=== PATIENT | female | born 1960 | race Caucasian/White ===

== ENCOUNTER 2017-11-28 14:28 | Emergency (ER) | payer BC, OTHER, SELFPAY ==
[2017-11-28 14:33] VITALS: BP 126/77; PULSE 78; RESP 14; TEMP 36.9; O2SAT 100; BMI 27.9
--- NOTE | 2017-11-28 14:38 | DI.RAD.S_ITS ---
PROCEDURE: XR CHEST 2V INDICATIONS: chest pain, shortness of breath, now resolved TECHNIQUE: 2 views of the chest were acquired. COMPARISON: [facility], , CHEST 1 VIEW, 11/03/2011, 16:06. FINDINGS: Surgical changes and devices: None. Lungs and pleura: No pleural effusions or pneumothorax. Lungs are clear. Mediastinum: Mediastinal contours are normal. Heart size is normal. Bones and chest wall: No suspicious bony abnormalities. Soft tissues appear unremarkable. IMPRESSION: No acute cardiopulmonary pathology. Dictated by: Zhen Sanches M.D. on 11/28/2017 at 15:36 Approved by: Zhen Sanches M.D. on 11/28/2017 at 15:36
[2017-11-28] MEDS: ASPIRIN EC 81 MG TABLET 324 MG PO (14:41)
[2017-11-28 14:57] LABS: Hematocrit 41.4 % (36-46); Hemoglobin 14.4 g/dL (12.0-16.0); Mean Corpuscular HGB Conc 34.7 % (30-36); Mean Corpuscular Hemoglobin 30.4 PG (26-34); Mean Corpuscular Volume 87.8 fL (80-100); Platelet Count 311 X10^3/uL (150-400); Red Blood Cell Count 4.72 X10^6/uL (4.0-5.2); Red Cell Distribution Width 12.8 % (11.6-14.8); White Blood Cell Count 7.7 X10^3/uL (4.5-11.0)
[2017-11-28 14:58] LABS: Neutrophils Absolute Manual 4774 /uL (3000-5900); Total Cells Counted 100
[2017-11-28 14:59] LABS: RBC Morphology Normal Morphology
[2017-11-28 15:03] LABS: INR 1.1 (0.9-1.3); Prothrombin Time 11.4 SECONDS (10.1-12.7)
[2017-11-28 15:07] LABS: Alanine Aminotransferase 26 IU/L (9-52); Albumin 4.3 g/dL (3.5-5.0); Albumin Globulin Ratio 1.4 (1.0-2.8); Alkaline Phosphatase 68 U/L (38-126); Aspartate Aminotransferase 22 IU/L (14-36); BUN Creatinine Ratio 17.8 (6-22); Bilirubin Total 0.6 mg/dL (0.2-1.3); Blood Urea Nitrogen 16 mg/dL (7-17); Calcium 9.5 mg/dL (8.4-10.2); Carbon Dioxide 27 mmol/L (22-32); Chloride 104 mmol/L (98-107); Creatine Kinase 98 U/L (30-135); Estimated Glomerular Filt Rate > 60.0 mL/min (>60); Globulin 3.1 g/dL (1.7-4.1); Glucose 95 mg/dL (70-100); HEMOLYSIS < 15 (0-50); Potassium 4.4 mmol/L (3.4-5.1); Sodium 141 mmol/L (137-145); Total Protein 7.4 g/dL (6.3-8.2)
[2017-11-28 15:25] LABS: Troponin I < 0.012 ng/mL (0.01-0.034)
--- NOTE | 2017-11-28 19:08 | ED.CHESTPAIN ---
HPI - Chest Pain General Chief Complaint: Chest Pain Stated Complaint: MIGHT HAVE HEART ISSUES Time Seen by Provider: 11/28/17 17:12 Source: patient and family Mode of arrival: ambulatory Limitations: no limitations History of Present Illness HPI narrative: 57-year-old female, nonsmoker presents to the emergency department with family in the chief complaint of chest pressure off and on for many months without any typical provocation, palliation or radiation. Patient denies any cough or shortness of breath nor fever or chills. Patient additionally noted which she describes as similar to floaters this morning at about 3 or 4 but no other neurologic symptoms such as focal weakness or ataxia nor speech troubles. Her symptoms were gone long before she presented to the emergency department MD complaint: chest pain Onset (ago): month(s) Duration: intermittent Pain location: substernal Severity: moderate Quality: heaviness Pain radiation: LUE Relieving factors: nothing Exacerbating factors: nothing Treatments prior to arrival chest pain: none Related Data Home Medications Medication Instructions Recorded Confirmed No Known Home Medications 11/28/17 11/28/17 Allergies Allergy/AdvReac Type Severity Reaction Status Date / Time codeine Allergy Unknown Verified 11/28/17 14:37 morphine Allergy Unknown Verified 11/28/17 14:37 Penicillins Allergy Unknown Verified 11/28/17 14:37 Review of Systems Review of Systems All systems reviewed & are unremarkable except as noted in HPI and below Constitutional Denies chills, Denies fever(s), Denies lethargy and Denies weakness Eyes Reports change in vision, Denies eye discharge, Denies irritation, Denies loss of vision and Reports spots in vision ENT Ears, Nose, Mouth, and Throat: Denies change in voice, Denies neck pain and Denies sore throat Cardiovascular Reports chest pain, Denies irregular heart rhythm, Denies lightheadedness, Denies palpitations, Denies dyspnea, Denies dyspnea on exertion and Denies orthopnea Respiratory Denies cough, Denies dyspnea, Denies dyspnea on exertion and Denies wheezing Gastrointestinal Gastrointestinal: Denies abdominal pain, Denies change in bowel habits, Denies diarrhea, Denies nausea and Denies vomiting Genitourinary Denies hematuria, Denies flank pain, Denies urinary incontinence and Denies urinary urgency Musculoskeletal Denies neck pain Integumentary/Breasts Denies pruritus, Denies erythema, Denies rash and Denies wounds Neurologic Denies confusion, Denies loss of vision and Denies weakness Psychiatric Denies anxiety, Denies confusion, Denies depression, Denies homicidal ideation and Denies suicidal ideation Endocrine Denies palpitations Hematologic/Lymphatic Denies easy bruising Allergic/Immunologic Denies wheezing [facility] Social History Smoking Status: Never smoker Exam Initial Vital Signs Initial Vital Signs: Vital Signs Temperature 98.5 F 11/28/17 14:33 Pulse Rate 78 11/28/17 14:33 Respiratory Rate 14 11/28/17 14:33 Blood Pressure 126/77 11/28/17 14:33 Pulse Oximetry 100 11/28/17 14:33 Const General: cooperative and well developed Nutritional Appearance: well nourished Orientation: alert, awake, oriented x3 and not confused HENMT Head: normocephalic and atraumatic Ears: external ears normal and TM's normal bilaterally Nose: external nose normal and No nasal discharge Face and sinus: sinuses nontender, face symmetric, no sinus tenderness and No dry mucous membranes Mouth: oral mucosae normal and moist mucous membranes Teeth and gingiva: dentition normal Throat: tonsils normal and uvula midline Eyes General: appearance normal, both eyes and all related structures Eyelids: eyelids normal Conjunctivae: conjunctivae normal Sclera: sclerae normal Pupils: PERRL EOM: EOM intact bilaterally Neck Neck: normal visual inspection, trachea midline, No lymphadenopathy, No midline deformity and No JVD Lymphatic: No lymphedema Chest Chest: normal inspection of the chest Resp Effort & Inspection: normal respiratory effort, able to speak in complete sentences, no respiratory distress and no use of accessory muscles Auscultation: clear to auscultation bilaterally, no rales, no rhonchi and no wheezes Cardio Rate: regular rate Rhythm: regular rhythm Heart Sounds: no click, no gallops, no murmurs and no rubs Pulses: normal peripheral pulses GI Inspection: non-distended Palpation: soft, no hepatosplenomegaly, No guarding, No pulsatile mass and No tender Auscultation: normal bowel sounds Back/Spine/Pelvis Back: No CVA tenderness Cervical Spine: cervical ROM normal and No pain with cervical ROM Thoracic/Lumbar Spine: thoracic and lumbar spine normal to inspection Skin General: no rashes or lesions noted, No jaundice and No petechiae Neuro General: alert, oriented x3, gait normal and no focal motor deficits Speech: speech normal Extrem General: full ROM, no clubbing, cyanosis or edema, no pedal edema and no calf tenderness Psych Appearance: well kempt Mental Status: mental status grossly normal Attitude: cooperative Thought Content: normal and suicidality Judgment: judgment good Scores HEART Score Heart Score history: Slightly Suspicious Heart Score EKG: Normal Heart Score Age: 45-64 years old Heart Score risk factors: No known risk factors Heart Score troponin: < or = to normal limit Heart Score Total: 1 NIH Stroke Scale Level of Conciousness: Alert, keenly responsive Ask month/age: Answers both questions correctly. Open/close eyes, close hand: Performs both tasks correctly Best gaze horizontal: Normal Visual james: No visual loss Facial palsy: Normal symetrical movement Left arm drift: No drift for full 10 sec Right arm drift: No drift for full 10 sec Left leg drift: No drift for full 10 sec Right leg drift: No drift for full 10 sec Limb ataxia: Absent Sensory on face/arms/legs: Normal, no sensory loss Best language: No aphasia, normal Dysarthria: Normal Extinction or inattention: No abnormality Total NIH Stroke scale score: 0 Course Orders Ordered: ED Orders 11/28/17 19:36 CT head/brain wo con Stat Discontinued Medications Aspirin (Aspirin Ec) 324 mg PO NOW ONE Stop: 11/28/17 14:39 Last Admin: 11/28/17 14:41 Dose: 324 mg Vital Signs - 8 hr 11/28/17 20:09 Pulse Rate 67 Respiratory Rate 17 Blood Pressure [Left Arm] 126/91 H Pulse Oximetry 100 MDM - Chest Pain Differential Diagnosis Likely fracture of rib, pneumothorax, stable angina, unstable angina pectoris, atypical chest pain, st elevation myocardial infarction, costochondritis, chest pain and biliary colic Medical Records Data Attestation: I reviewed the patient's medical records. Lab Data Attestation: I reviewed the patient's lab results. Result diagrams: 11/28/17 14:45 11/28/17 14:45 Lab Results 11/28/17 11/28/17 11/28/17 Range/Units 14:45 14:45 14:45 WBC 7.7 (4.5-11.0) X10^3/uL RBC 4.72 (4.0-5.2) X10^6/uL Hgb 14.4 (12.0-16.0) g/dL Hct 41.4 (36-46) % MCV 87.8 (80-100) fL MCH 30.4 (26-34) PG MCHC 34.7 (30-36) % RDW 12.8 (11.6-14.8) % Plt Count 311 (150-400) X10^3/uL Total Counted 100 Seg Neutrophils % 62.0 (38-70) % Lymphocytes % (Manual) 30.0 (25-45) % Monocytes % (Manual) 6.0 (2-11) % Eosinophils % (Manual) 1.0 L (2-4) % Basophils % (Manual) 1.0 (0-1) % Neutrophils # (Manual) 4774 (9076-9705) /uL RBC Morphology Normal morphology PT 11.4 (10.1-12.7) SECONDS INR 1.1 (0.9-1.3) Sodium 141 (137-145) mmol/L Potassium 4.4 (3.4-5.1) mmol/L Chloride 104 (98-107) mmol/L Carbon Dioxide 27 (22-32) mmol/L BUN 16 (7-17) mg/dL Creatinine 0.90 (0.52-1.04) mg/dL Estimated GFR > 60.0 (>60) mL/min BUN/Creatinine Ratio 17.8 (6-22) Glucose 95 (70-100) mg/dL Calcium 9.5 (8.4-10.2) mg/dL Total Bilirubin 0.6 (0.2-1.3) mg/dL AST 22 (14-36) IU/L ALT 26 (9-52) IU/L Alkaline Phosphatase 68 (38-126) U/L Total Creatine Kinase 98 (30-135) U/L Troponin I < 0.012 (0.01-0.034) ng/mL Total Protein 7.4 (6.3-8.2) g/dL Albumin 4.3 (3.5-5.0) g/dL Globulin 3.1 (1.7-4.1) g/dL Albumin/Globulin Ratio 1.4 (1.0-2.8) Imaging Data CT scan - head: Radiologist's impression: [address] [place] [address] CT Scan Report Signed Patient: Nasreen Seymour JMR#: [id number] : 2Acct:[id number] Age/Sex: 57 / FDate of Service: 11/28/17 Loc: ED Accession Number: [id number] Procedure: CT head/brain wo con Ordering Provider: Eliseo Moreira D.O. PROCEDURE: CT HEAD/BRAIN WO CON INDICATIONS: resolved neuro symptoms TECHNIQUE: Noncontrast 4.5 mm thick angled axial sections acquired from the foramen magnum to the vertex, with coronal and sagittal reformats. For radiation dose reduction, the following was used: automated exposure control, adjustment of mA and/or kV according to patient size. COMPARISON: [facility], CT, HEAD WITHOUT CONTRAST, 03/03/2013, 8:54. FINDINGS: Image quality: Excellent. CSF spaces: Basal cisterns are patent. No extra-axial fluid collections. Ventricles are normal in size and shape. Brain: No midline shift. No intracranial masses or hemorrhage. Reynoso-white matter interface is normal. Skull and face: Calvarium and visualized facial bones are intact, without suspicious lesions. Sinuses: Visualized sinuses and mastoids are clear. IMPRESSION: No acute intracranial disease process. Dictated by: Monique Avalos MD, PhD on 11/28/2017 at 20:13 Approved by: Monique Avalos MD, PhD on 11/28/2017 at 20:15 ECG Data Attestation: I personally reviewed and interpreted this ECG as follows: Prior ECG tracings: not available for review Interpretation: EKG is normal sinus rhythm and free of any signs of ischemia or ectopy. Discharge Plan Departure Patient Disposition: Home Clinical Impression: Chest pain Discharge Date/Time: 11/28/17 20:45 Interventions: ED Discharge Assessment Last Done: 11/28/17 20:44 Instructions: DI for Chest Pain Activity Restrictions/Additional Instructions: *You have been diagnosed with [ chest pain ] *What to do: *Take medications as directed: Start taking baby aspirin daily *Follow up with your primary care provider in 2-3 days, call for an appointment. Let them know you were seen in the Emergency Department and that we ask that you be seen in follow up *Return to ER if you should have any new, worsening or concerning symptoms, such as [recurrence of chest pain, shortness of breath, other neurologic symptoms such as numbness, weakness or tingling ] Prescriptions: No Action No Known Home Medications RF: 0 Referrals: Jairo Kraus MD [Primary Care Provider] -
--- NOTE | 2017-11-28 19:36 | DI.CT.S_ITS ---
PROCEDURE: CT HEAD/BRAIN WO CON INDICATIONS: resolved neuro symptoms TECHNIQUE: Noncontrast 4.5 mm thick angled axial sections acquired from the foramen magnum to the vertex, with coronal and sagittal reformats. For radiation dose reduction, the following was used: automated exposure control, adjustment of mA and/or kV according to patient size. COMPARISON: [facility], CT, HEAD WITHOUT CONTRAST, 03/03/2013, 8:54. FINDINGS: Image quality: Excellent. CSF spaces: Basal cisterns are patent. No extra-axial fluid collections. Ventricles are normal in size and shape. Brain: No midline shift. No intracranial masses or hemorrhage. Reynoso-white matter interface is normal. Skull and face: Calvarium and visualized facial bones are intact, without suspicious lesions. Sinuses: Visualized sinuses and mastoids are clear. IMPRESSION: No acute intracranial disease process. Dictated by: Monique Avalos MD, PhD on 11/28/2017 at 20:13 Approved by: Monique Aavlos MD, PhD on 11/28/2017 at 20:15
[2017-11-28 20:09] VITALS: BP 126/91; PULSE 67; RESP 17; O2SAT 100
== END 2017-11-28 20:45 | disposition home or self-care (01) ==
PROVIDERS: Emergency Medicine; Emergency Provider Emergency Medicine; PCP Specialist
DX: R07.89 Other chest pain (principal); H53.9 Unspecified visual disturbance
CPT/HCPCS: 36415; 70450; 71046; 80053; 82550; 82553; 84484; 85025; 85610; 93005; 93010; 99282; 99285

== ENCOUNTER 2020-08-01 10:32 | Emergency (ER) | payer OTHER, SELFPAY ==
[2020-08-01 10:35] VITALS: BP 135/76; PULSE 69; RESP 14; TEMP 37.1; O2SAT 95; BMI 27.4
--- NOTE | 2020-08-01 10:38 | ED.GENADULT ---
HPI - General Adult General Chief complaint: Headache Stated complaint: extreme headaches, hx of concussions Time Seen by Provider: 08/01/20 10:37 Source: patient Mode of arrival: Ambulatory Limitations: no limitations History of Present Illness HPI narrative: Patient is a 59-year-old female. She states that for at least the past year she has had daily headaches on the right side however yesterday morning the headache seems to be somewhat worsened a little bit different than her normal headaches. She does not take any regular medications for these although yesterday she did take some aspirin and yesterday afternoon took some ibuprofen without much relief. She does have some procedure scheduled with her eyes to include cataract surgery. She states that her eye doctor seems to think that maybe this is what is causing her headache although they are not 100% sure this. She has not talk with her primary doctor about them but does have an appointment coming up to discuss the headaches. She denies any fevers. Describes the pain as a throbbing/stabbing sensation to the right side of her head that extends to the back of her neck. No balance issues. She is photophobic. No recent travel. Related Data Home Medications Medication Instructions Recorded Confirmed No Known Home Medications 11/28/17 11/28/17 Allergies Allergy/AdvReac Type Severity Reaction Status Date / Time codeine Allergy Unknown Verified 08/01/20 10:42 morphine Allergy Unknown Verified 08/01/20 10:42 Penicillins Allergy Unknown Verified 08/01/20 10:42 Review of Systems Constitutional Constitutional: Denies chills, Denies fatigue, Denies fever(s) and Reports headache(s) Eyes Eyes: Reports blurry vision and Reports photophobia ENT Ears, Nose, Mouth, and Throat: Denies vertigo, Denies dizziness, Reports headache(s), Denies disequilibrium, Denies sinus pain and Denies sore throat Cardiovascular Cardiovascular: Denies chest pain and Denies dyspnea Respiratory Respiratory: Denies dyspnea Gastrointestinal Gastrointestinal: Denies change in bowel habits, Denies nausea and Denies vomiting Genitourinary Genitourinary: Denies dysuria Genitourinary: Denies dysuria Musculoskeletal Musculoskeletal: Denies arthralgias, Denies myalgias and Denies tingling Integumentary/Breasts Skin/Breast: Denies rash Neurologic Neurologic: Denies behavioral changes, Denies vertigo, Denies dizziness, Reports headache(s), Denies tingling and Denies disequilibrium Psychiatric Psychiatric: Denies behavioral changes Endocrine Endocrine: Denies fatigue Hematologic/Lymphatic On Anticoagulants: No Allergic/Immunologic Allergic/Immunologic: Denies urticaria Patient History Medical History Cataracts, both eyes Concussion Social History Smoking Status: Never smoker Smoking Status: Never smoker alcohol intake frequency: 0-2 drinks per day Substance Use Type: does not use Exam Initial Vital Signs Initial Vital Signs: Vital Signs Temperature 98.7 F 08/01/20 10:35 Pulse Rate 69 08/01/20 10:35 Respiratory Rate 14 08/01/20 10:35 Blood Pressure 135/76 08/01/20 10:35 Pulse Oximetry 95 08/01/20 10:35 Const General: cooperative and well developed Limitations: mental status not altered HENMT Head: normal to inspection and normocephalic Ears: TM's normal bilaterally Nose: external nose normal Face and sinus: normal facial exam Mouth: oral mucosae normal Teeth and gingiva: dentition normal Eyes Eyelids: eyelids normal Pupils: PERRL Other: Patient does have slight nasal deviation to the left eye. Patient states this is not new. Rest of her extra-ocular muscles are intact. Resp Effort & Inspection: normal respiratory effort Auscultation: clear to auscultation bilaterally Cardio Rate: regular rate Rhythm: regular rhythm GI Inspection: non-distended Palpation: soft Skin Lesions: no lesions Rashes: no rashes Neuro General: patient alert, patient awake and patient oriented x3 Cranial Nerves: CN's II-XI intact bilaterally Cognition: normal cognition Speech: speech normal Extrem General: normal to inspection and capillary refill normal Psych Appearance: grossly normal and well kempt Scores GCS Shayan coma scale eye opening: Spontaneous [place]iente coma scale verbal response: Orientated Shayan coma scale motor response: Obey commands Shayan coma scale total score: 15 Course Orders Ordered: ED Orders 08/01/20 10:54 CT head/brain wo con Stat Discontinued Medications Acetaminophen (Acetaminophen 325 Mg Tablet) 650 mg PO NOW ONE Stop: 08/01/20 10:54 Last Admin: 08/01/20 11:17 Dose: 650 mg Documented by: KAVON Diphenhydramine HCl (Diphenhydramine 50 Mg/Ml Vial) 25 mg IV NOW ONE Stop: 08/01/20 10:54 Last Admin: 08/01/20 11:14 Dose: 25 mg Documented by: KAVON Sodium Chloride (Normal Saline 0.9%) 1,000 mls @ 1,000 mls/hr IV BOLUS ONE Stop: 08/01/20 11:52 Last Admin: 08/01/20 11:16 Dose: 1,000 mls/hr Documented by: KAVON Ketorolac Tromethamine (Ketorolac 30 Mg/Ml Vial) 30 mg IV NOW ONE Stop: 08/01/20 10:54 Last Admin: 08/01/20 11:15 Dose: 30 mg Documented by: KAVON Metoclopramide HCl (Metoclopramide 10 Mg/2 Ml Inj) 10 mg IV NOW ONE Stop: 08/01/20 10:54 Last Admin: 08/01/20 11:16 Dose: 10 mg Documented by: KAVON Vital Signs Vital signs: Vital Signs - 8 hr 08/01/20 10:35 08/01/20 11:07 08/01/20 11:09 Temperature 98.7 F Pulse Rate 69 70 69 Respiratory Rate 14 Blood Pressure 135/76 130/86 Pulse Oximetry 95 96 96 08/01/20 11:30 08/01/20 12:00 Temperature Pulse Rate 50 L 52 L Respiratory Rate Blood Pressure 131/69 103/68 Pulse Oximetry 100 98 Medical Decision Making Imaging Data CT scan - head: Radiologist's Impression: [address] [id number] Scan ReportSigned Patient: Nasreen Seymour JMR#: [id number]: 2Acct:[id number]/Sex: 59 / FDate of Service: 08/01/20Loc: EDAccession Number: [id number] Procedure: CT head/brain wo con Ordering Provider: Tex Wakefield D.O. PROCEDURE: CT HEAD/BRAIN WO CON INDICATIONS: New onset right-sided headache TECHNIQUE: Noncontrast 4.5 mm thick angled axial sections acquired from the foramen magnum to the vertex, with coronal and sagittal reformats. For radiation dose reduction, the following was used: automated exposure control, adjustment of mA and/or kV according to patient size. COMPARISON: [facility], CT, HEAD WITHOUT CONTRAST, 03/03/2013, 8:54. [facility], CT, CT HEAD/BRAIN WO CON, 11/28/2017, 19:39. FINDINGS: Image quality: Excellent. CSF spaces: Basal cisterns are patent. No extra-axial fluid collections. Ventricles are normal in size and shape. Brain: No midline shift. No intracranial masses or hemorrhage. Reynoso-white matter interface is normal. Skull and face: Calvarium and visualized facial bones are intact, without suspicious lesions. Sinuses: Visualized sinuses and mastoids are clear. IMPRESSION: Normal noncontrast head CT, without an imaging explanation found for the patient's presenting symptoms. Dictated by: Tanmay Guadarrama M.D. on 08/01/2020 at 10:15 Approved by: Tanmay Guadarrama M.D. on 08/01/2020 at 10:17 MDM Narrative Medical decision making narrative: Patient's head CT is unremarkable. She has had headaches every day for the past year. She reports a complete resolution of her symptoms after medications. I have low suspicion for meningitis. Low suspicion for subarachnoid hemorrhage given her presentation. Could potentially be her chronic eye issues that are causing her headache. 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 Will have her keep these appointments. She was given return precautions. She expressed understanding and agreement. Discharge Plan Departure Patient Disposition: Home Clinical Impression: Headache Instructions: DI for Headache Activity Restrictions/Additional Instructions: Recommend that you continue all of your medications as directed. Keep all of your scheduled medical appointments. Return to the emergency department for any new or worsening symptoms. Prescriptions: No Action No Known Home Medications RF: 0 Referrals: Caryn Lieberman DO [Primary Care Provider] -
--- NOTE | 2020-08-01 10:54 | DI.CT.S_ITS ---
PROCEDURE: CT HEAD/BRAIN WO CON INDICATIONS: New onset right-sided headache TECHNIQUE: Noncontrast 4.5 mm thick angled axial sections acquired from the foramen magnum to the vertex, with coronal and sagittal reformats. For radiation dose reduction, the following was used: automated exposure control, adjustment of mA and/or kV according to patient size. COMPARISON: [facility], CT, HEAD WITHOUT CONTRAST, 03/03/2013, 8:54. [facility], CT, CT HEAD/BRAIN WO CON, 11/28/2017, 19:39. FINDINGS: Image quality: Excellent. CSF spaces: Basal cisterns are patent. No extra-axial fluid collections. Ventricles are normal in size and shape. Brain: No midline shift. No intracranial masses or hemorrhage. Reynoso-white matter interface is normal. Skull and face: Calvarium and visualized facial bones are intact, without suspicious lesions. Sinuses: Visualized sinuses and mastoids are clear. IMPRESSION: Normal noncontrast head CT, without an imaging explanation found for the patient's presenting symptoms. Dictated by: Tanmay Guadarrama M.D. on 08/01/2020 at 10:15 Approved by: Tanmay Guadarrama M.D. on 08/01/2020 at 10:17
[2020-08-01 11:07] VITALS: PULSE 70; O2SAT 96
[2020-08-01 11:09] VITALS: BP 130/86; PULSE 69; O2SAT 96
[2020-08-01] MEDS: diphenhydrAMINE 50 MG/ML VIAL 25 MG IV (11:14)
[2020-08-01] MEDS: KETOROLAC 30 MG/ML VIAL IV (11:15)
[2020-08-01] MEDS: SODIUM CHLORIDE 0.9% 1,000 ML 1000 ML IV (11:16)
[2020-08-01] MEDS: METOCLOPRAMIDE 10 MG/2 ML INJ IV (11:16)
[2020-08-01] MEDS: ACETAMINOPHEN 325 MG TABLET 650 MG PO (11:17)
[2020-08-01 11:30] VITALS: BP 131/69; PULSE 50; O2SAT 100
[2020-08-01 12:00] VITALS: BP 103/68; PULSE 52; O2SAT 98
[2020-08-01 12:34] VITALS: BP 103/65; PULSE 57; O2SAT 98
== END 2020-08-01 12:34 | disposition home or self-care (01) ==
PROVIDERS: Emergency Provider Emergency Medicine; PCP Family Medicine
DX: R51.9 Headache, unspecified (principal); H53.8 Other visual disturbances
CPT/HCPCS: 36415; 70450; 96361; 96374; 96375; 99284; J1200; J1885; J2765

== ENCOUNTER → 2020-11-06 14:59 | Outpatient (CLI) | payer OTHER, SELFPAY ==
[2020-11-06 16:59] LABS: COVID19 -Nasal RAPID Negative (Negative)
== END ==
PROVIDERS: PCP Family Medicine; Visit Provider Nurse Practitioner
DX: J02.9 Acute pharyngitis, unspecified (principal); R05 Cough; Z20.822 Contact with and (suspected) exposure to COVID-19
CPT/HCPCS: 87635

== ENCOUNTER 2021-10-15 11:28 | Emergency (ER) | payer OTHER, SELFPAY ==
[2021-10-15 12:13] VITALS: BP 116/68; PULSE 64; RESP 16; TEMP 36.9; O2SAT 100; BMI 27.4
--- NOTE | 2021-10-15 12:18 | DI.RAD.S_ITS ---
PROCEDURE: XR ANKLE LT MIN 3V INDICATIONS: twisted L ankle TECHNIQUE: 3 views of the ankle were acquired. COMPARISON: None. FINDINGS: Bones: Age-indeterminate transverse fracture through the medial malleolus. Remainder of the visualized osseous structures appear intact. Ankle mortise is normally aligned. No suspicious bony lesions. Soft tissues: No tibiotalar joint effusion. Achilles tendon appears normal. Moderate soft tissue swelling overlying the medial and lateral malleolus. IMPRESSION: Moderate soft tissue swelling of the left ankle. Age-indeterminate transverse fracture of the medial malleolus. Recommend correlation with examination for site of focal pain. Dictated by: Holden Altamirano M.D. on 10/15/2021 at 13:08 Approved by: Holden Altamirano M.D. on 10/15/2021 at 13:10
--- NOTE | 2021-10-15 13:28 | ED.LOWEXIN ---
HPI - Extremity Injury (Lower) <CHEY Mcknight - Last Filed: 10/15/21 17:10> General Chief Complaint: Extremity Injury, Lower Stated Complaint: lt. ankle pain Time Seen by Provider: 10/15/21 12:52 History of Present Illness HPI Narrative: This is a 60-year-old female who presents to the emergency department after she twisted her left ankle when she stepped off of a deck onto uneven ground causing inversion of her left foot. Patient reports feeling immediate pain afterwards, she states that she can bear weight but minimally. Endorses pain primarily on the medial aspect but across the whole ankle. She denies any foot pain, knee pain, hip pain. She denies pain in any other extremity, denies sensation changes, is able to dorsiflex and flex or extend without deficit. Related Data Home Medications Medication Instructions Recorded Confirmed No Known Home Medications 11/28/17 11/28/17 Allergies Allergy/AdvReac Type Severity Reaction Status Date / Time codeine Allergy Unknown Verified 08/01/20 10:42 morphine Allergy Unknown Verified 08/01/20 10:42 Penicillins Allergy Unknown Verified 08/01/20 10:42 Review of Systems <CHEY Mcknight - Last Filed: 10/15/21 17:10> Review of Systems Narrative: General: denies fever, chills, malaise, sweats, fatigue Head/Neck: denies headache, neck pain, dizziness Eyes: denies visual changes, eye pain Cardio: denies chest pain, palpitations, edema Respiratory: denies dyspnea, cough, orthopnea GI: denies abdominal pain, nausea, vomiting, or diarrhea : denies dysuria, hematuria, urinary retention, frequency or incontinence MSK: Endorses left ankle pain and swelling, denies muscle weakness Skin: denies rash, itching, skin lesions or other Neuro: denies numbness, tingling Patient History <CHEY Mcknight - Last Filed: 10/15/21 17:10> Medical History Cataracts, both eyes Concussion Social History Smoking Status: Never smoker Smoking Status: Never smoker alcohol intake frequency: 0-2 drinks per day Substance Use Type: does not use Exam <SULLY McknightP - Last Filed: 10/15/21 17:10> Narrative Exam Narrative: Independently reviewed vitals signs and nursing notes. General: cooperative, comfortable, in no acute distress, well groomed Head: atraumatic, symmetrical facial expressions Neck: supple Eyes: equal round and reactive, EOMI, conjunctiva normal Nose: nares patent, no rhinorrhea Mouth/Throat: moist mucus membranes Cardiovascular: regular rate and rhythm, no peripheral edema, warm extremities Respiratory: normal effort, able to speak in complete sentences, no audible wheezing, stridor, or rales. No retractions or tachypnea. GI: abdomen soft, nontender to palpation, nondistended, no masses, no exquisite tenderness with exam, without guarding or rebound. MSK: moves all extremities, neurovascularly intact, no weakness, normal tone, left ankle without tenderness over lateral malleolus, mild tenderness over medial malleolus, no tenderness over ATFL, CFL, Achilles tendon is palpable and nontender, PT and DP pulses are 2+, moderate amount of edema over the medial and lateral aspect of her ankle. Cap refill is brisk. Skin: brisk capillary refill, no rash, ecchymosis surrounding her medial and lateral malleoli without open wound, erythema, or rash Neuro: normal speech and cognition, A&O x3 Psych: mental status is grossly normal, congruent mood, normal affect, pleasant and cooperative Initial Vital Signs Initial Vital Signs: Vital Signs Temperature 98.4 F 10/15/21 12:13 Pulse Rate 64 10/15/21 12:13 Respiratory Rate 16 10/15/21 12:13 Blood Pressure 116/68 10/15/21 12:13 Pulse Oximetry 100 10/15/21 12:13 Oxygen Delivery Method 10/15/21 12:13 <Jannie Caldera DO - Last Filed: 10/17/21 08:00> Initial Vital Signs Initial Vital Signs: Vital Signs Temperature 98.4 F 10/15/21 12:13 Pulse Rate 64 10/15/21 12:13 Respiratory Rate 16 10/15/21 12:13 Blood Pressure 116/68 10/15/21 12:13 Pulse Oximetry 100 10/15/21 12:13 Oxygen Delivery Method 10/15/21 12:13 Procedures <CHEY Mcknight - Last Filed: 10/15/21 17:10> Orthopedic Splinting/Casting Injury #1: Side: left Lower Extremity Injury Location: ankle Lower Extremity Immobilizer: boot orthosis Other Orthopedic Equipment: crutches Post splinting neuro exam: intact Post splinting vascular exam: intact Placed by: Nursing Course <CHEY Mcknight - Last Filed: 10/15/21 17:10> Orders Ordered: ED Orders 10/15/21 12:18 XR ankle LT min 3V Stat 10/15/21 13:38 Consult to Orthopedic Surgery Stat Vital Signs Vital signs: Vital Signs - 8 hr 10/15/21 12:13 Temperature 98.4 F Pulse Rate 64 Respiratory Rate 16 Blood Pressure 116/68 Pulse Oximetry 100 Oxygen Delivery Method Room Air <Jannie Caldera DO - Last Filed: 10/17/21 08:00> Orders Ordered: ED Orders 10/15/21 12:18 XR ankle LT min 3V Stat 10/15/21 13:38 Consult to Orthopedic Surgery Stat Vital Signs Vital signs: Vital Signs - 8 hr 10/15/21 12:13 Temperature 98.4 F Pulse Rate 64 Respiratory Rate 16 Blood Pressure 116/68 Pulse Oximetry 100 Oxygen Delivery Method Room Air MDM - Extremity Injury (Lower) <CHEY Mcknight - Last Filed: 10/15/21 17:10> Imaging Data Extremity x-ray #1: Radiologist's Impression: PROCEDURE:? XR ANKLE LT MIN 3V ? INDICATIONS:? twisted L ankle ? TECHNIQUE:? 3 views of the ankle were acquired.? ? COMPARISON:? None. ? FINDINGS:? ? Bones:? Age-indeterminate transverse fracture through the medial malleolus. Remainder of the visualized osseous structures appear intact.? Ankle mortise is normally aligned.? No suspicious bony lesions.? ? Soft tissues:? No tibiotalar joint effusion.? Achilles tendon appears normal.? Moderate soft tissue swelling overlying the medial and lateral malleolus.? ?? IMPRESSION:? Moderate soft tissue swelling of the left ankle.? Age-indeterminate transverse fracture of the medial malleolus.? Recommend correlation with examination for site of focal pain. ? ? Dictated by: Holden Altamirano M.D. on 10/15/2021 at 13:08 ? ? Approved by: Holden Altamirano M.D. on 10/15/2021 at 13:10 ? [facility] Narrative Medical decision making narrative: This is a 60-year-old female presents to the emergency department after she rolled her ankle stepping off of the deck today complaining of left ankle pain. She was able to mildly bear weight when she presented, denies any numbness or tingling, endorse that she heard a cracking and popping noise in her left ankle. Her left ankle x-ray shows moderate soft tissue swelling of the left ankle, age indeterminate transverse fracture of the medial malleolus. Patient had mild tenderness on the medial malleolus without tenderness on the lateral malleolus. Consultation with Dr. Hess who is on-call for orthopedics who recommends weight-bearing as tolerated, boot arthrosis, and follow-up in the clinic. Patient was provided crutches for assistance with weight-bearing, she declined needing any stronger pain medicine than ibuprofen or Tylenol. Encouraged her to ice, elevate, rest, and weight bear as tolerated with her walking boot until she follows up with Orthopedics. Contact information for [facility] was shared and a consultation for [facility] was placed. Patient is appropriate and amenable to discharge home. Vital signs are stable on repeat examination is unremarkable. Patient has been informed of results. Patient has been given strict return to ER precautions for any new or worsening symptoms. Patient understands to follow up closely with outpatient providers as instructed. Patient understands plan and agrees to discharge home. All questions and concerns answered at this time. Discharge Plan Departure Patient Disposition: Home Clinical Impression: Closed fracture of medial malleolus of left ankle Qualifiers: Encounter type: initial encounter Fracture alignment: nondisplaced Qualified Code(s): S82.55XA - Nondisplaced fracture of medial malleolus of left tibia, initial encounter for closed fracture Instructions: Ankle Fracture Activity Restrictions/Additional Instructions: *You have been diagnosed with a transverse fracture of the medial malleolus. The ankle joint is normally aligned, you can weight bear as tolerated in your boot. Please take 600 mg of ibuprofen every 6 hours with food and water, Tylenol in addition to this for increased pain control, ice it frequently over the next few days, keep it elevated as much as possible. Please use crutches or a walker for an adjunct to mobility. Please follow-up at [facility] or wherever you choose to follow-up. I hope you start feeling better soon, return to the emergency department for any new or worsening issues. Try topical Voltaren gel and ice to help with pain. *What to do: *Please continue to take your regular medications as directed. [ ] New medication prescriptions sent to your pharmacy: [ ] [ ] New medication written as a paper prescription [ x] No new medications given *Please follow up with your primary care provider in 2-3 days, call for an appointment. Let them know you were seen in the Emergency Department and that we asked that you be seen for follow-up. We will electronically transmit a record of today's note if your PCP is in our system *If you do not have a primary care provider please contact [phone] to establish care with one of the [facility] primary care providers. *Return to Emergency Department if you should have any new, worsening or concerning symptoms, such as [fever greater than 101F, chills, worsening pain, persistent vomiting or other bothersome symptoms] Prescriptions: No Action No Known Home Medications Referrals: [facility] [Provider Group] Caryn Lieberman DO [Primary Care Provider] - Visit Report Forms: Patient Portal/API <Jannie Caldera DO - Last Filed: 10/17/21 08:00> [facility] Attending Cristal Attestation: I was immediately available in the department for consultation. Documentation has been reviewed. I agree with assessment and plan.
--- NOTE | 2021-10-15 13:55 | PC.NURSE ---
ASSESSED BY LAB NURSE WITHOUT RN INVOLVEMENT
== END 2021-10-15 13:56 | disposition home or self-care (01) ==
PROVIDERS: Emergency Provider Nurse Practitioner Critical Care Medicine; PCP Family Medicine
DX: S82.55XA Nondisplaced fracture of medial malleolus of left tibia, initial encounter for closed fracture (principal); X50.1XXA Overexertion from prolonged static or awkward postures, initial encounter
CPT/HCPCS: 73610; 99283

== ENCOUNTER 2023-02-03 22:50 | Emergency (ER) | payer OTHER, SELFPAY ==
[2023-02-03 22:57] VITALS: BP 180/84; PULSE 71; RESP 18; TEMP 36.7; O2SAT 99; BMI 28.3
--- NOTE | 2023-02-03 23:07 | DI.RAD.S_ITS ---
PROCEDURE: XR CHEST 1V INDICATIONS: chest pain TECHNIQUE: One view of the chest was acquired. COMPARISON: [facility], CR, XR CHEST 2V, 11/28/2017, 14:53. FINDINGS: Surgical changes and devices: None. Lungs and pleura: Lungs are clear. No pleural effusions or pneumothorax. Mediastinum: Mediastinal contours appear normal. Heart size is normal. Bones and chest wall: No suspicious bony lesions. Overlying soft tissues appear unremarkable. IMPRESSION: No acute cardiopulmonary pathology. Dictated by: Zhen Sanches M.D. on 02/03/2023 at 23:50 Approved by: Zhen Sanches M.D. on 02/03/2023 at 23:51
[2023-02-03 23:19] LABS: Add Manual Diff / Slide Review NO; Basophils Absolute Auto 0 /uL (0-100); Basophils Percent Auto 0.6 % (0-2); Eosinophils Absolute Auto 200 /uL (0-450); Eosinophils Percent Auto 2.9 % (2-4); Hematocrit 41.8 % (36-46); Hemoglobin 14.4 g/dL (12.0-16.0); Lymphocytes Absolute Auto 2900 /uL (1100-4500); Lymphocytes Percent Auto 35.6 % (25-40); Mean Corpuscular HGB Conc 34.4 % (30-36); Mean Corpuscular Hemoglobin 30.5 PG (26-34); Mean Corpuscular Volume 88.6 fL (80-100); Monocytes Absolute Auto 500 /uL (0-900); Monocytes Percent Auto 5.9 % (3-14); Neutrophils Absolute Auto 4500 /uL (1500-7000); Platelet Count 306 X10^3/uL (150-400); Red Blood Cell Count 4.72 X10^6/uL (4.0-5.2); Red Cell Distribution Width 13.2 % (11.6-14.8); White Blood Cell Count 8.1 X10^3/uL (4.5-11.0)
--- NOTE | 2023-02-03 23:19 | ED.CHESTPAIN ---
HPI - Chest Pain General Chief Complaint: Chest Pain Stated Complaint: chest pain Time Seen by Provider: 02/03/23 22:58 Source: patient and family Mode of arrival: Ambulatory History of Present Illness HPI narrative: Patient is a 62-year-old female history of depression presenting today with sudden onset difficulty swallowing and chest pain. She reports that she was eating Erma nuts she felt like she could not swallow she feels like she has to burp. She is some tingling to her arms. She is worried she might be having a heart. She reports that this happened to her previously when she was easy hazelnuts. She is no difficulty breathing no tongue swelling or lip swelling. No hives. Really feels like she can not swallow. She is managing her secretions she is able to swallow water but feels like still not getting better. No prior history of coronary artery disease. Related Data Previous Rx's Medication Instructions Recorded omeprazole 20 mg capsule,delayed 20 mg PO DAILY #30 caps 02/04/23 release Allergies Allergy/AdvReac Type Severity Reaction Status Date / Time codeine Allergy Unknown Verified 02/03/23 22:57 morphine Allergy Unknown Verified 02/03/23 22:57 Penicillins Allergy Unknown Verified 02/03/23 22:57 Patient History Medical History Cataracts, both eyes Concussion Social History Smoking Status: Never smoker Smoking Status: Never smoker alcohol intake frequency: a few times a week Alcohol type: beer Substance Use Type: does not use Exam Initial Vital Signs Initial Vital Signs: Vital Signs Temperature 98.1 F 02/03/23 22:57 Pulse Rate 71 02/03/23 22:57 Respiratory Rate 18 02/03/23 22:57 Blood Pressure 180/84 H 02/03/23 22:57 Pulse Oximetry 99 02/03/23 22:57 Oxygen Delivery Method Room Air 02/03/23 22:57 GENERAL: Alert 62-year-old female HEENT: Head atraumatic,EOMI, pupils reactive, face symmetric, moist mucous membranes managing own secretions, no obvious angioedema CARDIOVASCULAR: Regular rate and rhythm without murmurs, rubs or gallops. RESPIRATORY: Breath sounds equal bilaterally, no wheezes rales or rhonchi. No stridor ABDOMEN: Soft, nontender. Normoactive bowel sounds all 4 quadrants. No guarding or rebound. EXTREMITIES: Normal range of motion, no clubbing or edema. Neurovascularly intact NEUROLOGICAL: Alert and oriented x4.Normal gait and speech. SKIN: Warm, dry, no laceration, no petechiae, no rashes or lesions. Course Orders Ordered: ED Orders 02/03/23 23:00 Complete Blood Count AUTO DIFF Stat Comprehensive Metabolic Panel Stat Lipase Stat Troponin & CK Cardiac Panel Stat 02/03/23 23:07 XR chest 1V Stat EKG-12 Lead Stat Sodium Chloride (Normal Saline 0.9%) 1,000 mls @ 150 mls/hr IV CONT SERAFIN Last Admin: 02/03/23 23:22 Dose: 150 mls/hr Discontinued Medications Glucagon (Glucagon,Human Recombinant 1 Mg/Ml Vial) 1 mg IV NOW ONE Stop: 02/03/23 23:24 Last Admin: 02/03/23 23:29 Dose: 1 mg Methylprednisolone (Methylprednisolone 125 Mg/2 Ml Vial) 125 mg IV NOW ONE Stop: 02/03/23 23:07 Pantoprazole Sodium (Pantoprazole 40 Mg Vial) 40 mg IV NOW ONE Stop: 02/03/23 23:07 Last Admin: 02/03/23 23:21 Dose: 40 mg Vital Signs Vital signs: Vital Signs - 8 hr 02/03/23 22:57 02/03/23 23:30 Temperature 98.1 F Pulse Rate 71 60 Respiratory Rate 18 23 Blood Pressure 180/84 H 138/63 Pulse Oximetry 99 96 Oxygen Delivery Method Room Air Room Air MDM - Chest Pain Lab Data 02/03/23 23:00 02/03/23 23:00 Labs: Lab Results 02/03/23 Range/Units 23:00 WBC 8.1 (4.5-11.0) X10^3/uL RBC 4.72 (4.0-5.2) X10^6/uL Hgb 14.4 (12.0-16.0) g/dL Hct 41.8 (36-46) % MCV 88.6 (80-100) fL MCH 30.5 (26-34) PG MCHC 34.4 (30-36) % RDW 13.2 (11.6-14.8) % Plt Count 306 (150-400) X10^3/uL Neut % (Auto) 55.0 (50-75) % Lymph % (Auto) 35.6 (25-40) % [place] % (Auto) 5.9 (3-14) % Eos % (Auto) 2.9 (2-4) % Baso % (Auto) 0.6 (0-2) % Neut # (Auto) 4500 (1030-4667) /uL Lymph # (Auto) 2900 (2170-5770) /uL [place] # (Auto) 500 (0-900) /uL Eos # (Auto) 200 (0-450) /uL Baso # (Auto) 0 (0-100) /uL Sodium 136 L (137-145) mmol/L Potassium 3.7 (3.4-5.1) mmol/L Chloride 101 (98-107) mmol/L Carbon Dioxide 28 (22-32) mmol/L BUN 11 (7-17) mg/dL Creatinine 0.75 (0.52-1.04) mg/dL Estimated GFR > 60 (>60) mL/min BUN/Creatinine Ratio 14.7 (6-22) Glucose 100 (80-110) mg/dL Calcium 9.5 (8.4-10.2) mg/dL Total Bilirubin 0.3 (0.2-1.3) mg/dL AST 29 (14-36) IU/L ALT 24 (<35) IU/L Alkaline Phosphatase 66 (38-126) U/L Total Creatine Kinase 119 (30-135) U/L Troponin I < 0.012 (0.01-0.034) ng/mL Total Protein 7.7 (6.3-8.2) g/dL Albumin 4.2 (3.5-5.0) g/dL Globulin 3.5 (1.7-4.1) g/dL Albumin/Globulin Ratio 1.2 (1.0-2.8) Lipase 78 (23-300) U/L Imaging Data Chest x-ray: Radiologist's Impression: PROCEDURE: XR CHEST 1V INDICATIONS: chest pain TECHNIQUE: One view of the chest was acquired. COMPARISON: [facility], CR, XR CHEST 2V, 11/28/2017, 14:53. FINDINGS: Surgical changes and devices: None. Lungs and pleura: Lungs are clear. No pleural effusions or pneumothorax. Mediastinum: Mediastinal contours appear normal. Heart size is normal. Bones and chest wall: No suspicious bony lesions. Overlying soft tissues appear unremarkable. IMPRESSION: No acute cardiopulmonary pathology. Dictated by: Zhen Sanches M.D. on 02/03/2023 at 23:50 ECG Data Interpretation: Normal sinus rhythm rate 68 MO interval 128 QRS [address] changes or voltage noted MDM Narrative Medical decision making narrative: Patient is 62-year-old presents today with chest discomfort. After eating hazelnuts. She describes it as squeezing difficulty swallowing not necessarily breathing. She reports that she went and vomit. This sounds more like esophageal spasm. She is no evidence of stridor or angioedema or allergic reaction think this is less likely although it happened twice with Erma nuts. EKG does not show any changes. She is given Protonix glucagon and some gabriela unique. She was able to keep down water but she says it still feels like it is squeezing. After about 10 minute she ultimately got relief and feels like she is doing better. Symptoms are most consistent with a esophageal spasm. Troponin and blood work have been reviewed and negative. No EKG changes chest x-ray does not show any acute cardiopulmonary pathology. At this time encourage her to take Protonix home. Discharge Plan Departure Patient Disposition: Home Clinical Impression: Spasm of esophagus Instructions: Steakhouse Syndrome Activity Restrictions/Additional Instructions: *You have been diagnosed with esophageal spasm *What to do: Your symptoms are consistent with esophageal spasm. Please drink fluids while eating. Taking an antacid such as omeprazole may help decrease these episodes. *Continue to take medications as directed Omeprazole 20 mg once daily *Follow up with your primary care provider in 2-3 days or call [phone] *Return to ER if you should have increased chest pain shortness of breath difficulty breathing or any new, worsening or concerning symptoms Prescriptions: New omeprazole 20 mg capsule,delayed release(DR/EC) 20 mg PO DAILY Qty: 30 0RF Referrals: Caryn Lieberman DO [Primary Care Provider] - Stand Alone Forms: Patient Portal/API
[2023-02-03] MEDS: PANTOPRAZOLE 40 MG VIAL IV (23:21)
[2023-02-03] MEDS: SODIUM CHLORIDE 0.9% 1,000 ML 150 ML IV (23:22)
[2023-02-03 23:23] LABS: Alanine Aminotransferase 24 IU/L (<35); Albumin 4.2 g/dL (3.5-5.0); Albumin Globulin Ratio 1.2 (1.0-2.8); Alkaline Phosphatase 66 U/L (38-126); Aspartate Aminotransferase 29 IU/L (14-36); BUN Creatinine Ratio 14.7 (6-22); Bilirubin Total 0.3 mg/dL (0.2-1.3); Blood Urea Nitrogen 11 mg/dL (7-17); Calcium 9.5 mg/dL (8.4-10.2); Carbon Dioxide 28 mmol/L (22-32); Chloride 101 mmol/L (98-107); Creatine Kinase 119 U/L (30-135); Estimated Glomerular Filt Rate > 60 mL/min (>60); Globulin 3.5 g/dL (1.7-4.1); Glucose 100 mg/dL (80-110); HEMOLYSIS < 15 (0-50); Lipase 78 U/L (23-300); Potassium 3.7 mmol/L (3.4-5.1); Sodium 136 mmol/L (137-145); Total Protein 7.7 g/dL (6.3-8.2)
[2023-02-03] MEDS: GLUCAGON,HUMAN RECOMBINANT 1 MG/ML VIAL IV (23:29)
[2023-02-03 23:30] VITALS: BP 138/63; PULSE 60; RESP 23; O2SAT 96
[2023-02-03 23:35] LABS: Troponin I < 0.012 ng/mL (0.01-0.034)
--- NOTE | 2023-02-03 23:51 | PC.NURSE ---
Pt states started with chest pressure immediately after eating mackenzie nuts. States has drank water but felt extremely nauseous and states feels like something is stuck in her throat. Gave water at triage, pt immediately started burping but no water came back up. With doctor's order Gave glucagon followed by soda and jumping with no improvement. still able to keep soda down but started burping again and states increase pressure.
[2023-02-03 23:55] VITALS: PULSE 59; RESP 22
[2023-02-04] VITALS: PULSE 61; RESP 18
[2023-02-04 00:01] VITALS: BP 121/58; PULSE 62; RESP 23; O2SAT 98
== END 2023-02-04 00:32 | disposition home or self-care (01) ==
PROVIDERS: Emergency Provider Emergency Medicine; PCP Family Medicine
DX: K22.4 Dyskinesia of esophagus (principal); R07.9 Chest pain, unspecified
CPT/HCPCS: 36415; 71045; 80053; 82550; 83690; 84484; 85025; 93005; 96361; 96374; 96375; 99284; C9113; J1610; J2930